=== PATIENT | female | born 1950 | race Caucasian/White ===

== ENCOUNTER 2018-10-20 17:05 | Emergency (ER) | payer OTHER ==
[~2018-10-20] VITALS: Ht 160 cm; Wt 66.2 kg
[2018-10-20 17:27] VITALS: Ht 160 cm; Wt 66.2 kg
[2018-10-20 19:30] VITALS: BP 131/61
== END 2018-10-20 19:30 | disposition home or self-care (01) ==
LOC: ED 17:05
DX: R60.0 Localized edema (principal); M79.601 Pain in right arm; K21.9 Gastro-esophageal reflux disease without esophagitis; M19.90 Unspecified osteoarthritis, unspecified site; Z85.831 Personal history of malignant neoplasm of soft tissue
CPT/HCPCS: Q0092